=== PATIENT | male | born 1950 | race Caucasian/White ===

== ENCOUNTER 2016-12-20 17:38 | Emergency (ER) | payer MEDICARE, OTHER ==
[2016-12-20 16:38] LABS: A/G RATIO 0.4 (0.7-1.9); ALKALINE PHOSPHATASE 82 U/L (45-117); BUN (BLOOD UREA NITROGEN) 22 MG/DL (6-23); CALCIUM, SERUM 8.9 MG/DL (8.5-10.4); CHLORIDE, SERUM 104 MMOL/L (96-112); CO2 (CARBON DIOXIDE) 24 MMOL/L (24-34); GFR AFRICAN AMERICAN 65 ML/MIN (>=60); GFR NON AFRICAN AMERICAN 56 ML/MIN (>=60); GLOBULIN 6.9 G/DL (2.5-4.1); GLUCOSE, SERUM 89 MG/DL (60-99); POTASSIUM, SERUM 4.4 MMOL/L (3.5-5.3); SGOT(AST) 22 U/L (5-40); SGPT(ALT) 36 U/L (5-65); SODIUM, SERUM 135 MMOL/L (135-148); TOTAL BILIRUBIN 0.4 MG/DL (0-1.2); TOTAL PROTEIN 9.9 G/DL (6.0-8.5)
[2016-12-20 18:06] LABS: BASOPHILS 0.3 %; BASOPHILS ABSOLUTE 0.02 10/3/uL (0.0-0.16); EOSINOPHILS 0.1 %; EOSINOPHILS ABSOLUTE 0.01 10/3/uL (0.0-0.53); ER CBC TAT 0 Hrs 11 Mins; HEMATOCRIT 38.1 % (40.0-51.0); HEMOGLOBIN 12.9 g/dL (13.6-17.8); IMMATURE GRANULOCYTES 0.1 %; IMMATURE GRANULOCYTES ABSOLUTE 0.01 10/3/uL (0.0-0.11); LYMPHOCYTES 27.2 %; LYMPHOCYTES ABSOLUTE 2.09 10/3/uL (0.67-4.30); MEAN CORPUS HGB CONC 33.9 g/dL (32.0-36.0); MEAN CORPUSCULAR HEMOGLOB 28.9 pg (26.0-34.0); MEAN CORPUSCULAR VOLUME 85.4 fL (80-100); MEAN PLATELET VOLUME 8.6 fL (9.2-13.0); MONOCYTES 8.2 %; MONOCYTES ABSOLUTE 0.63 10/3/uL (0.21-1.20); NEUTROPHILS 64.1 %; NEUTROPHILS ABSOLUTE 4.91 10/3/uL (2.02-8.40); PLATELET COUNT 283 10/3/uL (150-400); RBC DISTRIBUTION WIDTH 13.6 % (12.0-16.0); RED CELL COUNT 4.46 10/6/uL (4.7-6.1); WHITE BLOOD CELLS 7.7 10/3/uL (4.5-10.5)
[2016-12-20 18:07] LABS: MANUAL DIFF NO %
== END 2016-12-20 19:07 | disposition home or self-care (01) ==
LOC: ER 17:38
PROVIDERS: Emergency Medicine
DX: E11.621 Type 2 diabetes mellitus with foot ulcer (principal); L97.529 Non-pressure chronic ulcer of other part of left foot with unspecified severity; L97.519 Non-pressure chronic ulcer of other part of right foot with unspecified severity
CPT/HCPCS: 80053; 85025; 87070; 87077; 87186; 87205; 99283